=== PATIENT | female | born 1960 | race Caucasian/White ===

== ENCOUNTER 2017-03-18 17:33 | Emergency (ER) | payer BC ==
--- NOTE | 2017-03-18 18:04 | ERNOTE ---
Lower Extremity HPI - Narrative Date of Service: 03/18/17 - General Lower Extremities Pain: leg: right Time Seen by Provider: 03/18/17 17:53 Source: patient, RN notes reviewed Exam Limitations: no limitations - Immun/Allergies/Home Medications Immunizations: IMMUNIZATION HX Immunizations Up to Date Yes History of Influenza Vaccine No Hx Pneumococcal Vaccination No Allergies/Adverse Reactions: Allergies Allergy/AdvReac Type Severity Reaction Status Date / Time venom-honey bee Allergy Verified 03/18/17 17:48 [bee venom (honey bee)] atorvastatin calcium AdvReac Other Verified 03/18/17 17:48 [From Lipitor] lisinopril AdvReac Other Verified 03/18/17 17:48 sertraline HCl [From Zoloft] AdvReac had a Verified 03/18/17 17:48 seizure after tramadol AdvReac had a Verified 03/18/17 17:48 seizure after Home Medications: HOME MEDICATIONS Acetaminophen [Tylenol] 650 mg PO QID PRN #1 tablet 03/28/14 [Last Taken Unknown ] Bupropion HCl [Wellbutrin] 100 mg PO BID 03/28/14 [Last Taken 03/27/14] Esomeprazole Magnesium [Nexium] 40 mg PO DAILY 03/28/14 [Last Taken 03/27/14 12: 00] Ezetimibe [Zetia] 10 mg PO HS 03/28/14 [Last Taken 03/27/14] Propranolol HCl [Inderal] 10 mg PO DAILY 05/14/14 [Last Taken Unknown] Synthroid 07/23/14 [Last Taken Unknown] levETIRAcetam [Keppra] 750 mg PO BID 07/23/14 [Last Taken Unknown] HYDROcodone/ACETAMINOPHEN [[place] 5-325] 1 each PO Q4H PRN #16 tablet 07/24/14 [ Last Taken Unknown] Amox Tr/Potassium Clavulanate [Augmentin 875-125 Tablet] 875 mg PO Q12H #20 tab 03/18/17 [Last Taken Unknown] Naproxen [Naprosyn] 500 mg PO BID #20 tablet 03/18/17 [Last Taken Unknown] - History of Present Illness Narrative: 56 year old female presents to the ED for evaluation of a possible DVT in her right posterior calf. She has varicosities and usually wears compression socks. She noticed a sore, protruding vein in the calf when she took her socks off 4 days ago. She has continued to have pain and redness in the area. She saw her doctor today and had lab work done. She reports that her D-dimer was positive, so she came here for an ultrasound. The lab results are not currently available for review. Date (Duration): 03/14/17 Method of Injury: Reports: no apparent injury Prior Treament: Reports: recently seen, similar symptoms before Review of Systems - Review of Systems Constitutional: Absent: recent illness, fever, malaise EYE: Present: no symptoms reported ENT: Present: no symptoms reported Respiratory: Absent: shortness of breath, cough Cardiology: Present: edema. Absent: chest pain, palpitations, claudication Gastrointestinal/Abdominal: Absent: nausea, abdominal pain Genitourinary: Present: no symptoms reported Musculoskeletal: Absent: joint pain, joint swelling Skin: Present: lumps, change in color. Absent: rash, lesions Neurological: Absent: weakness, numbness, tingling Endocrine: Present: no symptoms reported Hematologic/Lymphatic: Absent: easy bruising, easy bleeding Psych: Present: no symptoms reported - Patient's Past Medical History Patient History - Medical: Anxiety, Depression, Hypothyroidism, Obesity, Seizures Patient History - Cardiac/Respiratory: Deep Vein Thrombosis, Hypertension, Hyperlipidemia, Sleep Apnea Patient History - Cancer: Skin Patient History - Surgical Procedures: Cancer Surgery, , Hysterectomy, T & A, Other Patient History - Other: None LMP (females 10-50): Menopausal - Social History Living Situations: home Abuse History: No History of abuse Psych History: Hx of Anxiety, Current tx/ever been on anti-depressants or anti- anxiety meds Smoking Status: Current every day smoker Cigarettes Packs Per Day: 1 Have you smoked in the past 12 months: Yes Alcohol Use: occasionally Drug Use: none - Immunizations Immunizations Up to Date: Yes Hx Pneumococcal Vaccination: No History of Influenza Vaccine: No Physical Exam - Physical Exam General Appearance: Present: wd/wn, alert, no apparent distress, obese Neck: Present: normal inspection, nontender, supple Respiratory: Present: no respiratory distress, normal breath sounds, no accessory muscle use, lungs clear Cardiovascular/Chest: Present: regular rate, rhythm, no murmur, normal peripheral pulses Extremity Exam: Present: normal range of motion, calf tenderness - Right, with erythema and warmth, extremity edema - bilateral legs, mild. Absent: joint redness, joint swelling Neurological Exam: Present: alert, oriented, normal mood/affect, no motor/ sensory deficits Skin Exam: Present: normal color, warm/dry ED Progress - Vital Signs Patient's Vital Signs:: I have reviewed the patient's vital signs. Vital Signs: Vital Signs 03/18/17 17:41 Temperature 36.7 C Pulse Rate 74 Respiratory 16 Rate Blood Pressure 171/95 O2 Sat by Pulse 98 Oximetry - CT/Ultrasound CT/Ultrasound Narrative: US of right leg shows no evidence of DVT, but does show a superficial thrombophlebitis of the right posterior lower leg - which corresponds with the patient's redness/pain - Progress/Reassessment Chief Complaint: Lower Extremity Pain/ Injury Progress:: Improved Departure Clinical Impression: Superficial thrombophlebitis Qualifiers: Superficial thrombophlebitis-Involved body area: lower extremity Laterality: right Qualified Code(s): I80.01 - Phlebitis and thrombophlebitis of superficial vessels of right lower extremity - Departure Disposition: Home Follow Up Needed Condition: Good Instructions: Form - Excuse from Work, School, or Physical Activity, Phlebitis , [id number] Additional Instructions: Elevate leg and use warm, moist compresses Follow up for new/worsening symptoms Referrals: Cynthia Baumann DO [Primary Care Provider] - Prescriptions: Amox Tr/Potassium Clavulanate [Augmentin 875-125 Tablet] 875 mg PO Q12H #20 tab Naproxen [Naprosyn] 500 mg PO BID #20 tablet
[2017-03-18 20:25] VITALS: BP 132/70
[2017-03-18] MEDS ORDERED: NAPROXEN SODIUM 550 MG TABLET PO ONE (21:15)
[2017-03-18] MEDS ORDERED: AMOX TR/POTASSIUM CLAVULANATE 875 MG TABLET PO ONE (21:15)
[2017-03-18] MEDS ORDERED: NAPROXEN SODIUM 550 MG TABLET ONE (21:20)
[2017-03-18] MEDS ORDERED: AMOX TR/POTASSIUM CLAVULANATE 875 MG TABLET ONE (21:20)
== END 2017-03-18 21:20 | disposition home or self-care (01) ==
LOC: ER 17:33
DX: I80.01 Phlebitis and thrombophlebitis of superficial vessels of right lower extremity (principal); Z85.828 Personal history of other malignant neoplasm of skin; F17.210 Nicotine dependence, cigarettes, uncomplicated